=== PATIENT | female | born 1980 | race African-American/Black ===

== ENCOUNTER 2017-12-27 14:03 | Emergency (ER) | payer SELFPAY ==
[~2017-12-27] VITALS: Ht 160 cm; Wt 70.1 kg
[~2017-12-27 14:03] MED LIST: ENDOCET 5-3251 EACH PO; Motrin PO; Tylenol Extra Streng PO; ~No Medications
[2017-12-27 14:30] LABS: HEMATOCRIT 36.6 % (36.0-46.0); HEMOGLOBIN 12.6 G/DL (11.9-15.5); MCHC 34.4 G/DL (30.0-36.0); MCV 75.6 FL (83-99); PLATELET COUNT 257 K/uL (156-360); RBC DIS.WIDTH-CV 13.6 % (11.8-14.6); RBC DIS.WIDTH-SD 37.1 % (39-53); RED BLOOD COUNT 4.84 M/uL (3.80-5.20)
[2017-12-27 14:37] LABS: ALBUMIN 4.7 g/dL (3.2-4.8); CHLORIDE 105 mEq/L (99-109); POTASSIUM 3.8 mEq/L (3.7-5.4); SODIUM 139 mEq/L (136-147)
[2017-12-27 14:39] LABS: GLUCOSE 105 mg/dL (70-99)
[2017-12-27 14:40] LABS: TOTAL PROTEIN 7.7 g/dL (6.4-8.3)
[2017-12-27 14:41] LABS: TOTAL BILIRUBIN 0.8 mg/dL (0.0-1.0)
[2017-12-27 14:43] LABS: ALKALINE PHOSPHATASE 57 IU/L (3-129); CREATININE 0.9 mg/dL (0.6-1.3); GFR ESTIMATE (CALCULATED) > 59 mL/min/
[2017-12-27 14:44] LABS: UREA NITROGEN (BUN) 8 mg/dL (9-23)
[2017-12-27 14:45] LABS: AST (GOT) 13 IU/L (2-34)
[2017-12-27 14:46] LABS: ALT (GPT) 10 IU/L (3-49); LIPASE 28 U/L (1.0-51.0)
[2017-12-27 14:54] LABS: QUANTITATIVE HCG < 4.0 MIU/ML
[2017-12-27 15:21] LABS: APPEARANCE CLEAR ((CLEAR)); BILIRUBIN NEGATIVE; BLOOD NEGATIVE; COLOR YELLOW ((YELLOW)); GLUCOSE (STRIP) NEGATIVE; KETONES NEGATIVE; LEUKOCYTES NEGATIVE; NITRITE NEGATIVE; PROTEIN (STRIP) NEGATIVE; SPECIFIC GRAVITY 1.017 (1.000-1.030); UCUL ADDED? NO; UROBILINOGEN 0.2 MG/DL (0.2-1.0)
[2017-12-27 20:09] VITALS: BP 133/80
== END 2017-12-27 20:10 | disposition home or self-care (01) ==
LOC: EME 14:03
DX: N84.0 Polyp of corpus uteri (principal); D25.9 Leiomyoma of uterus, unspecified
CPT/HCPCS: 74177; 76856; 80053; 81003; 83690; 84702; 85027; 99281; 99284; J2405; J7030